=== PATIENT | male | born 1970 | race Caucasian/White ===

== ENCOUNTER 2016-08-30 18:55 | Emergency (ER) | payer MEDICARE, OTHER ==
[~2016-08-30] VITALS: Ht 175.3 cm; Wt 161.2 kg
[2016-08-30 18:59] VITALS: BP 190/99; PULSE 87; RESP 18; TEMP 97.6; O2SAT 100
--- NOTE | 2016-08-30 19:20 | PD ---
HPI Chief Complaint: Pain: Acute or Chronic Time Seen by Provider: 19:06 Travel History International Travel<30 days: No Contact w/Intl Traveler<30days: No Traveled to known affect area: No History of Present Illness HPI The patient is a 46-year-old male who at approximately 5 PM today felt some spasms in his left little finger and some sharp chest pain lasting 2 seconds. He came in because he wanted get it checked out. He was afraid it might be a heart attack or stroke. He does not have any history of heart disease. He does have a history of chronic back pain and is disabled for this. He also has a history of morbid obesity. He has never had a stroke before. He is able to move his little finger and all of her extremities normally at this time. He denies any focal weakness or sensory loss. PFS Past Medical History Depression: Yes Diminished Hearing: No Musculoskeletal: Yes (Fx coccyx) Respiratory: Yes (SLEEP APNEA, SLEEPS WITH CPAP) Past Surgical History Abdominal Surgery: Yes (GASTRIC BYPASS) Social History Alcohol Use: No Tobacco Use: No Substance Use: No Allergies-Medications (Allergen,Severity, Reaction): Coded Allergies: No Known Allergies (Unverified , 08/30/16) Reported Meds & Prescriptions Reported Meds & Active Scripts Active No Active Prescriptions or Reported Medications Review of Systems Except as stated in HPI: all other systems reviewed are Neg Physical Exam Narrative GENERAL: Well-nourished, alert and oriented, obese patient in no apparent distress. His vital signs show blood pressure 190/99 but are otherwise normal. SKIN: Focused skin assessment warm/dry. HEAD: Normocephalic. EYES: No scleral icterus. No injection or drainage. NECK: Supple, trachea midline. No JVD or lymphadenopathy. CARDIOVASCULAR: Regular rate and rhythm without murmurs, gallops, or rubs. RESPIRATORY: Breath sounds equal bilaterally. No accessory muscle use. GASTROINTESTINAL: Abdomen soft, non-tender, nondistended. MUSCULOSKELETAL: No cyanosis, or edema. The patient has full range of motion of all the fingers in the left hand and normal sensation in the left hand. BACK: Nontender without obvious deformity. No CVA tenderness. NEUROLOGICAL: Awake and alert. Cranial nerves II through XII intact. Motor and sensory grossly within normal limits. Five out of 5 muscle strength in all muscle groups. Normal speech. Data Data Last Documented VS Vital Signs Date Time Temp Pulse Resp B/P Pulse Ox O2 Delivery O2 Flow Rate FiO2 08/30/16 19:21 83 18 08/30/16 18:59 97.6 190/99 100 Orders Electrocardiogram (08/30/16 19:20) MDM Medical Decision Making Medical Screen Exam Complete: Yes Emergency Medical Condition: Yes Medical Record Reviewed: Yes Interpretation(s) The EKG is completely normal with a normal sinus rhythm rate of 76. Differential Diagnosis Muscle spasm left little finger, chest wall pain, acute coronary syndrome highly unlikely, ischemic CVAhighly unlikely, TIAhighly unlikely Narrative Course The patient had a transient muscle spasm of the left little finger and atypical chest pain. Plan: He needs to follow-up with his primary care physician. This does not appear to be a stroke or ischemic CVA. He has had no further episodes since the 2 second episode earlier today. Diagnosis Primary Impression: Muscle spasm Additional Impression: Atypical chest pain Additional Instructions: Follow-up with your primary care physician. This appears to be a muscle spasm of the little finger and chest pain which is a type of pain usually not associated with heart disease. Med/Other Pt SpecificInfo: No Change to Meds Scripts No Active Prescriptions or Reported Meds Disposition: 01 DISCHARGE HOME Condition: Stable Trev Lemon MD August 30, 2016 19:20
[2016-08-30 20:23] VITALS: BP 151/79
--- NOTE | 2016-08-31 17:20 | EKG ---
Date Performed: 08/30/2016 Time Performed: 19:21:22 PTAGE: 46 years EKG: Sinus rhythm Normal ECG NO PREVIOUS TRACING DOCTOR: Dash Santillan Interpretating Date/Time 08/31/2016 17:19:21
== END 2016-08-30 20:24 | disposition home or self-care (01) ==
LOC: PHED 18:55
DX: M62.838 Other muscle spasm (principal); R07.89 Other chest pain; F32.9 Major depressive disorder, single episode, unspecified; E66.01 Morbid (severe) obesity due to excess calories
CPT/HCPCS: 93005; 99283

== ENCOUNTER 2017-02-09 11:26 | Emergency (ER) | payer MEDICARE, OTHER ==
[~2017-02-09] VITALS: Ht 177.8 cm; Wt 164.0 kg
[2017-02-09 11:32] VITALS: BP 140/81; PULSE 73; RESP 16; TEMP 97.9; O2SAT 100
--- NOTE | 2017-02-09 11:43 | PD ---
HPI Chief Complaint: head injury Time Seen by Provider: 11:30 Travel History International Travel<30 days: No Contact w/Intl Traveler<30days: No History of Present Illness HPI 46-year-old male presents to the emergency department for evaluation of head injury that occurred just prior to arrival. Patient was reaching for a large can of tomatoes on the top shelf when it fell and hit the top of his head. He states that he leaned over, but did not fall over. He complains of headache and neck pain. He also has a laceration to the right scalp. He is unsure if his tetanus immunization is up-to-date. He denies any chest pain. No abdominal pain. No nausea, vomiting, diarrhea. He has not on any anticoagulants. He has no medical problems and takes no prescribed medications. Patient states he was able to ambulate with the assistance of his to the couch. At that point, he does report loss of consciousness. He denies any hip or pelvic pain. No other complaints at this time. [facility] Past Medical History Depression: Yes Diminished Hearing: No Musculoskeletal: Yes (Fx coccyx) Respiratory: Yes (SLEEP APNEA, SLEEPS WITH CPAP) Immunizations Current: Yes Past Surgical History Abdominal Surgery: Yes (GASTRIC BYPASS) Social History Alcohol Use: No Tobacco Use: No Substance Use: No Allergies-Medications (Allergen,Severity, Reaction): Coded Allergies: No Known Allergies (Verified Adverse Reaction, Unknown, 02/09/17) Reported Meds & Prescriptions Reported Meds & Active Scripts Active No Active Prescriptions or Reported Medications Review of Systems Except as stated in HPI: all other systems reviewed are Neg Physical Exam Narrative GENERAL: Well-nourished, well-developed male patient, afebrile. SKIN: Focused skin assessment warm/dry. Patient has 2 centimeter laceration with bleeding controlled to the right scalp. HEAD: Normocephalic. ENT: Mucosa pink and moist. No erythema or exudates. No uvular edema. No uvular , palatal, or tonsillar deviation. Airway patent. Nasal turbinates appear normal without nasal blood, purulent drainage or septal hematoma. Bilateral tympanic membranes are clear without erythema or perforation. EYES: No scleral icterus. No injection or drainage. NECK: Supple, trachea midline. No JVD or lymphadenopathy. CARDIOVASCULAR: Regular rate and rhythm without murmurs, gallops, or rubs. RESPIRATORY: Breath sounds equal bilaterally. No accessory muscle use. Lungs sounds are clear to auscultation. GASTROINTESTINAL: Abdomen soft, non-tender, nondistended. MUSCULOSKELETAL: No cyanosis, or edema. BACK: No obvious deformity. No CVA tenderness. Patient has tenderness over upper midline cervical spine. Data Data Last Documented VS Vital Signs Date Time Temp Pulse Resp B/P (MAP) Pulse Ox O2 Delivery O2 Flow Rate FiO2 02/09/17 11:35 73 16 100 Room Air 02/09/17 11:32 97.9 140/81 (100) Orders Orders Apply Cervical Collar (02/09/17 11:37) Ct Brain W/O Iv Contrast(Rout) (02/09/17 ) Ct Cerv Spine W/O Contrast (02/09/17 ) Tetanus/Diphtheria Tox Adult (Tetanus/Di (02/09/17 11:45) Lidocai-Epi 1%-1:100,000 Inj (Xylocaine- (02/09/17 11:45) Ibuprofen (Motrin) (02/09/17 12:45) MDM Medical Decision Making Medical Screen Exam Complete: Yes Emergency Medical Condition: Yes Medical Record Reviewed: Yes Interpretation(s) Ct brain - CONCLUSION: Negative trauma CT CT cervical spine - CONCLUSION: Negative trauma CT Differential Diagnosis Closed head injury versus intracranial abnormality versus cervical strain versus fracture versus laceration Narrative Course 46-year-old male presents to the emergency department via EMS for evaluation of head injury after large can of tomatoes fell on his head with positive LOC. C- collar is applied. CT of the brain and cervical spine are ordered and pending. Tetanus immunization is updated. Patient gives verbal consent for laceration repair. CT of the brain is negative. CT of the cervical spine is negative. Laceration is repaired. Patient is given proper wound care instructions. He is given ibuprofen 600 mg by mouth for headache. He'll be discharged prescription for ibuprofen. He is to return here for any acute worsening of symptoms, any evidence of infection. He verbalizes agreement and understanding. The patient was discharged in stable condition with instructions, including return instructions and follow up instructions. Procedures Procedure Narrative LACERATION LOCATION: Scalp LENGTH: 2 cm NUMBER OF STITCHES/LEONID: 3 leonid REPAIR: The area of the laceration was prepped with Betadine and sterilely draped. The laceration was infiltrated with 1% lidocaine with epinephrine. The wound was copiously irrigated and explored without evidence of foreign body, tendon injury or neurovascular injury. The wound was closed using leonid. This was a single layer repair. A sterile dressing was applied. The patient was advised to keep the dressing clean and dry. Patient tolerated the procedure well. Diagnosis Primary Impression: Head injury Qualified Codes: S09.90XA - Unspecified injury of head, initial encounter Additional Impression: Scalp laceration Qualified Codes: S01.01XA - Laceration without foreign body of scalp, initial encounter Referrals: Primary Care Physician call for appointment Patient Instructions: General Instructions, Head Injury (ED) Additional Instructions: Take ibuprofen as directed as needed with food for pain. Clean laceration twice daily with soap and water and apply [id number]-yrduoxl antibiotic ointment. No swimming or hot tubs. Suture removal in 7-10 days. Return to the emergency department for any acute worsening of symptoms. Med/Other Pt SpecificInfo: Prescription(s) given Scripts Ibuprofen (Ibuprofen) 600 Mg Tab 600 MG PO TID Y for PAIN SCALE 1 TO 10, #21 TAB 0 Refills Prov: Janel Skinner 02/09/17 Disposition: 01 DISCHARGE HOME Condition: Stable Janel Skinner Feb 09, 2017 11:43
[2017-02-09] MEDS ORDERED: TETANUS/DIPHTHERIA TOXOID ADULT 0.5 ML VIAL IM ONE (11:45)
[2017-02-09] MEDS ORDERED: LIDOCAINE 1%/EPINEPHrine 1:100,000 SOLN 20 ML VIAL INFIL ONE (11:45)
--- NOTE | 2017-02-09 12:17 | RADRPT ---
EXAM DATE/TIME: 02/09/2017 12:05 [facility] COMPARISON: CT BRAIN W/O CONTRAST, July 18, 2015, 21:16. INDICATIONS : Injury to head, hit with 7 pound object. LOC, Laceration Right side. RADIATION DOSE: 44.50 CTDIvol (mGy) MEDICAL HISTORY : None SURGICAL HISTORY : Gastric bypass. ENCOUNTER: Initial ACUITY: 1 day PAIN SCALE: 8/10 LOCATION: Right cranial TECHNIQUE: Multiple contiguous axial images were obtained of the head. Using automated exposure control and adj ustment of the mA and/or kV according to patient size, radiation dose was kept as low as reasonably a chievable to obtain optimal diagnostic quality images. DICOM format image data is available electro nically for review and comparison. FINDINGS: CEREBRUM: The ventricles are normal for age. No evidence of midline shift, mass lesion, hemorrhage or acute in farction. No extra-axial fluid collections are seen. POSTERIOR FOSSA: The cerebellum and brainstem are intact. The 4th ventricle is midline. The cerebellopontine angle i s unremarkable. EXTRACRANIAL: The visualized portion of the orbits is intact. SKULL: The calvaria is intact. No evidence of skull fracture. CONCLUSION: Negative trauma CT Lino Dubose MD on February 09, 2017 at 12:14 Board Certified Radiologist. This report was verified electronically.
--- NOTE | 2017-02-09 12:24 | RADRPT ---
EXAM DATE/TIME: 02/09/2017 12:05 [facility] COMPARISON: No previous studies available for comparison. INDICATIONS : Injury to head, hit with 7 pound object. LOC, Laceration Right side RADIATION DOSE: 23.58 CTDIvol (mGy) MEDICAL HISTORY : None SURGICAL HISTORY : Gastric bypass. ENCOUNTER: Initial ACUITY: 1 day PAIN SCALE: 8/10 LOCATION: Right neck TECHNIQUE: Volumetric scanning of the cervical spine was performed. Multiplanar reconstructions in the sagittal, coronal and oblique axial planes were performed. Using automated exposure control and adjustment o f the mA and/or kV according to patient size, radiation dose was kept as low as reasonably achievable to obtain optimal diagnostic quality images. DICOM format image data is available electronically f or review and comparison. FINDINGS: VERTEBRAE: Normal vertebral body height. ALIGNMENT: No evidence of subluxation. The axial images demonstrate that the vertebral bodies and posterior elements are intact. The prevert ebral soft tissues are within normal limits. CONCLUSION: Negative trauma CT Lino Dubose MD on February 09, 2017 at 12:22 Board Certified Radiologist. This report was verified electronically.
[2017-02-09] MEDS ORDERED: IBUP-232 PO (12:39)
[2017-02-09] MEDS ORDERED: IBUPROFEN 600 MG TAB PO ONE (12:45)
--- NOTE | 2017-02-09 12:57 | PD ---
Data Data Last Documented VS Vital Signs Date Time Temp Pulse Resp B/P (MAP) Pulse Ox O2 Delivery O2 Flow Rate FiO2 02/09/17 11:35 73 16 100 Room Air 02/09/17 11:32 97.9 140/81 (100) Orders Orders Apply Cervical Collar (02/09/17 11:37) Ct Brain W/O Iv Contrast(Rout) (02/09/17 ) Ct Cerv Spine W/O Contrast (02/09/17 ) Tetanus/Diphtheria Tox Adult (Tetanus/Di (02/09/17 11:45) Lidocai-Epi 1%-1:100,000 Inj (Xylocaine- (02/09/17 11:45) Ibuprofen (Motrin) (02/09/17 12:45) Ed Discharge Order (02/09/17 12:58) Ed Discharge Order (02/09/17 12:58) Collar [place] (02/09/17 ) MDM Medical Record Reviewed: Yes Supervised Visit with YONATAN: Yes Narrative Course I, Dr. Santillan, have reviewed the advance practice practitioner's documentation and am in agreement, met with the patient face to face, made the diagnosis, and the medical decision making was done by me. *My assessment and Findings: Case reviewed with Janel Skinner. Pt stable for discharge home. Diagnosis Primary Impression: Head injury Qualified Codes: S09.90XA - Unspecified injury of head, initial encounter Additional Impression: Scalp laceration Qualified Codes: S01.01XA - Laceration without foreign body of scalp, initial encounter Referrals: Primary Care Physician call for appointment Patient Instructions: General Instructions, Head Injury (ED) Additional Instruction: Take ibuprofen as directed as needed with food for pain. Clean laceration twice daily with soap and water and apply [id number]-[id number] antibiotic ointment. No swimming or hot tubs. Suture removal in 7-10 days. Return to the emergency department for any acute worsening of symptoms. Scripts Ibuprofen (Ibuprofen) 600 Mg Tab 600 MG PO TID Y for PAIN SCALE 1 TO 10, #21 TAB 0 Refills Prov: Janel Skinner 02/09/17 Disposition: 01 DISCHARGE HOME Condition: Stable Joao Santillan MD Feb 09, 2017 12:57
[2017-02-09 13:30] VITALS: BP 124/78; TEMP 97.8
== END 2017-02-09 13:30 | disposition home or self-care (01) ==
LOC: NEPC 11:26
DX: S09.90XA Unspecified injury of head, initial encounter (principal); S01.01XA Laceration without foreign body of scalp, initial encounter; W20.8XXA Other cause of strike by thrown, projected or falling object, initial encounter; F32.9 Major depressive disorder, single episode, unspecified; G47.33 Obstructive sleep apnea (adult) (pediatric); Z98.84 Bariatric surgery status
CPT/HCPCS: 12001; 70450; 72125; 90471; 90714; 99285; L0150